=== PATIENT | male | born 1955 | race African-American/Black ===

== ENCOUNTER 2019-11-09 20:11 | Emergency (ER) | payer MEDICARE, MEDICAID ==
[~2019-11-09] VITALS: Ht 188 cm; Wt 81.8 kg
[2019-11-09] MEDS ORDERED: ibuprofen tablet 400 MG TABLET PO ONE (23:45)
[2019-11-10] MEDS ORDERED: HYDR-4383 PO (00:59)
[2019-11-10] MEDS ORDERED: HYDROcodone/acetaminophen 10/325mg tab PO ONE (01:00)
[2019-11-10 01:37] VITALS: BP 134/89
== END 2019-11-10 01:42 | disposition home or self-care (01) ==
LOC: ER 20:13
DX: S42.021A Displaced fracture of shaft of right clavicle, initial encounter for closed fracture (principal); Z88.0 Allergy status to penicillin; Z79.899 Other long term (current) drug therapy; V19.9XXA Pedal cyclist (driver) (passenger) injured in unspecified traffic accident, initial encounter; Y93.I9 Activity, other involving external motion; Y92.488 Other paved roadways as the place of occurrence of the external cause; Y99.8 Other external cause status
CPT/HCPCS: 71045; 73000; 99284

== ENCOUNTER 2021-11-26 07:49 | Emergency (ER) | payer MEDICARE, MEDICAID ==
[~2021-11-26] VITALS: Ht 188 cm; Wt 82.3 kg
[~2021-11-26 07:49] MED LIST: HYDR-4383 PO
[2021-11-26 07:53] VITALS: BP 155/89
[2021-11-26] MEDS ORDERED: OXYC10TA92 PO (08:25)
[2021-11-26] MEDS ORDERED: ibuprofen tablet 400 MG TABLET PO ONE (08:30)
[2021-11-26] MEDS ORDERED: ibuprofen 200mg tablet PO ONE (08:35)
== END 2021-11-26 08:49 | disposition home or self-care (01) ==
LOC: ER 07:50
DX: M25.511 Pain in right shoulder (principal); M54.50 Low back pain, unspecified; M54.2 Cervicalgia; R07.81 Pleurodynia; M79.605 Pain in left leg; M79.604 Pain in right leg; G89.29 Other chronic pain; Z76.0 Encounter for issue of repeat prescription; Z88.0 Allergy status to penicillin; Z79.899 Other long term (current) drug therapy
CPT/HCPCS: 99284

== ENCOUNTER 2022-01-19 11:00 | Emergency (ER) | payer MEDICARE, MEDICAID ==
[~2022-01-19] VITALS: Ht 188 cm; Wt 82.8 kg
[~2022-01-19 11:00] MED LIST changes: +OXYC10TA92 PO
[2022-01-19 11:21] VITALS: BP 176/94
[2022-01-19] MEDS ORDERED: SULF1TAB49 PO (12:57)
== END 2022-01-19 13:08 | disposition home or self-care (01) ==
LOC: ER 11:01
DX: L03.114 Cellulitis of left upper limb (principal); G89.29 Other chronic pain; Z88.0 Allergy status to penicillin; Z79.899 Other long term (current) drug therapy; Z86.19 Personal history of other infectious and parasitic diseases
CPT/HCPCS: 99283

== ENCOUNTER 2022-01-21 10:38 | Emergency (ER) | payer MEDICARE, MEDICAID ==
[~2022-01-21] VITALS: Ht 188 cm; Wt 81.8 kg
[~2022-01-21 10:38] MED LIST changes: +SULF1TAB49 PO
[2022-01-21 10:52] VITALS: BP 157/92
[2022-01-21 12:52] LABS: BASOPHILS % (AUTO) 0.2 % (0-1); EOSINOPHILS # (AUTO) 0.1 X10'3 (0-0.9); EOSINOPHILS % (AUTO) 0.9 % (0-6); LYMPHOCYTES # (AUTO) 0.9 X10'3 (1.1-4.8); MEAN CORPUSCULAR HEMOGLOBIN 30.1 PG (27.0-31.0); MEAN CORPUSCULAR HGB CONC 33.4 g/dL (33.0-36.5); MEAN CORPUSCULAR VOLUME 90.2 FL (78-98); MEAN PLATELET VOLUME 8.1 FL (7.4-10.4); MONOCYTES # (AUTO) 0.6 X10'3 (0-0.9); MONOCYTES % (AUTO) 8.1 % (2-12); NEUTROPHILS # (AUTO) 5.4 X10'3 (1.8-7.7); NEUTROPHILS % (AUTO) 77.8 % (42-75); PLATELET COUNT 213 X10'3 (140-440); RED BLOOD COUNT 4.65 X10'6 (4.70-6.10); RED CELL DISTRIBUTION WIDTH 14.4 % (11.5-14.5); WHITE BLOOD COUNT 6.9 X10'3 (4.5-11.0)
[2022-01-21 13:10] LABS: ALANINE AMINOTRANSFERASE 31 U/L (12-78); ALBUMIN 3.5 G/DL (3.4-5.0); ALBUMIN/GLOBULIN RATIO 0.8 (1.1-1.5); ALKALINE PHOSPHATASE 73 IU/L (46-116); ANION GAP 10 (8-16); ASPARTATE AMINO TRANSFERASE 19 U/L (10-37); BILIRUBIN,TOTAL 0.5 MG/DL (0.1-1.0); BLOOD UREA NITROGEN 9 MG/DL (7-18); BUN/CREATININE RATIO 11.4 (5.4-32.0); CALCIUM 9.2 MG/DL (8.5-10.1); CHLORIDE 102 MMOL/L (99-107); CREATININE 0.79 MG/DL (0.60-1.10); GLUCOSE 94 MG/DL (70-104); POTASSIUM 3.8 MMOL/L (3.5-5.1); SODIUM 139 MMOL/L (135-145); eGFR > 90 ML/MIN
[2022-01-21] MEDS ORDERED: iohexol 300mg/ml 100ml inj. ONE (13:17)
--- NOTE | 2022-01-21 15:11 | NUR ---
Pt requesting pain medication, food, and an updated plan - "is the doc going to I&D this?"
--- NOTE | 2022-01-21 15:18 | NUR ---
Pt noticably agitated and irritated. Pt placed on re-eval.
--- NOTE | 2022-01-21 15:19 | NUR ---
Pt waiting on CT result.
[2022-01-21] MEDS ORDERED: ketorolac trometh. 30mg/ml inj. IV ONE (15:55)
[2022-01-21] MEDS ORDERED: ketorolac tromethamine 15mg/ml inj. IV ONE (16:00)
== END 2022-01-21 16:17 | disposition home or self-care (01) ==
LOC: ER 10:38
DX: L02.434 Carbuncle of left upper limb (principal); R53.83 Other fatigue; G89.29 Other chronic pain; Z88.0 Allergy status to penicillin; Z79.899 Other long term (current) drug therapy
CPT/HCPCS: 36415; 73201; 80053; 85025; 96374; 99285; J1885; Q9967; 99284

== ENCOUNTER 2022-02-09 11:16 | Emergency (ER) | payer MEDICARE, MEDICAID ==
[~2022-02-09] VITALS: Ht 188 cm; Wt 82.5 kg
[~2022-02-09 11:16] MED LIST changes: -SULF1TAB49 PO
--- NOTE | 2022-02-09 15:35 | NUR ---
Pt resting comfortably in bed, no apparent distress or needs at this time.
--- NOTE | 2022-02-09 16:05 | NUR ---
Pt up to bathroom, warm blanket provided.
--- NOTE | 2022-02-09 16:15 | NUR ---
Introduced self to pt. Pt pleasant, A&Ox3, no apparent distress or needs at this time.
[2022-02-09 17:45] VITALS: BP 194/129
--- NOTE | 2022-02-09 17:52 | NUR ---
Pt verbally escalated and angry. Not agreeing to d/c without pain medication. Forceably placed Oxycotin ER bottle in my hand and told me to "tell that I didn't wait 6 hours to get no pain meds." Charge nurse notified, notified, Security notified.
== END 2022-02-09 18:33 | disposition home or self-care (01) ==
LOC: ER 11:17
DX: G89.29 Other chronic pain (principal); M25.511 Pain in right shoulder; M79.605 Pain in left leg; Z88.0 Allergy status to penicillin; Z79.899 Other long term (current) drug therapy
CPT/HCPCS: 99281

== ENCOUNTER 2022-07-03 16:36 | Emergency (ER) | payer MEDICARE, MEDICAID ==
[~2022-07-03] VITALS: Ht 188 cm; Wt 81.8 kg
[2022-07-03 16:58] VITALS: BP 146/102
[2022-07-03] MEDS ORDERED: CLIN150C8 PO (18:51)
== END 2022-07-03 19:10 | disposition home or self-care (01) ==
LOC: ER 16:37
DX: K61.1 Rectal abscess (principal); Z48.00 Encounter for change or removal of nonsurgical wound dressing; G89.29 Other chronic pain; M54.9 Dorsalgia, unspecified; Z88.0 Allergy status to penicillin
CPT/HCPCS: 99283

== ENCOUNTER 2022-07-21 09:42 | Emergency (ER) | payer MEDICARE, MEDICAID ==
[~2022-07-21 09:42] MED LIST changes: +CLIN150C8 PO
== END 2022-07-21 11:22 | disposition left against medical advice (07) ==
LOC: ER 09:43
DX: Z76.0 Encounter for issue of repeat prescription (principal); Z53.21 Procedure and treatment not carried out due to patient leaving prior to being seen by health care provider

== ENCOUNTER 2022-08-01 09:41 | Emergency (ER) | payer MEDICARE, MEDICAID ==
[~2022-08-01] VITALS: Ht 188 cm; Wt 81.8 kg
[2022-08-01 10:28] VITALS: BP 151/103
[2022-08-01] MEDS ORDERED: SULF1TAB49 PO (11:41)
== END 2022-08-01 12:04 | disposition home or self-care (01) ==
LOC: ER 09:42
DX: K61.0 Anal abscess (principal); I10 Essential (primary) hypertension; G89.29 Other chronic pain; M54.9 Dorsalgia, unspecified; Z88.0 Allergy status to penicillin; Z79.2 Long term (current) use of antibiotics; Z79.899 Other long term (current) drug therapy
CPT/HCPCS: 99283

== ENCOUNTER 2022-09-02 10:01 | Emergency (ER) | payer MEDICARE, MEDICAID ==
[~2022-09-02] VITALS: Ht 188 cm; Wt 83.0 kg
[2022-09-02] MEDS ORDERED: normal saline 1000ML IV soln IV ONE (11:30)
[2022-09-02 11:48] LABS: BASOPHILS % (AUTO) 0.3 % (0-1); EOSINOPHILS # (AUTO) 0.1 X10'3 (0-0.9); EOSINOPHILS % (AUTO) 1.9 % (0-6); HEMATOCRIT 41.9 % (42.0-52.0); HEMOGLOBIN 13.9 g/dl (14.0-17.9); LYMPHOCYTES % (AUTO) 31.8 % (21-51); MEAN CORPUSCULAR HEMOGLOBIN 30.8 PG (27.0-31.0); MEAN CORPUSCULAR HGB CONC 33.3 g/dL (33.0-36.5); MEAN CORPUSCULAR VOLUME 92.7 FL (78-98); MEAN PLATELET VOLUME 7.7 FL (7.4-10.4); MONOCYTES # (AUTO) 0.3 X10'3 (0-0.9); MONOCYTES % (AUTO) 10.1 % (2-12); NEUTROPHILS # (AUTO) 1.8 X10'3 (1.8-7.7); NEUTROPHILS % (AUTO) 55.9 % (42-75); PLATELET COUNT 203 X10'3 (140-440); RED BLOOD COUNT 4.52 X10'6 (4.70-6.10); RED CELL DISTRIBUTION WIDTH 14.4 % (11.5-14.5); WHITE BLOOD COUNT 3.2 X10'3 (4.5-11.0)
[2022-09-02] MEDS: diatr meglu/diatrizoate 30ml oral sol.-(3 dose) bottle PO SCH ×3 (11:58→14:01)
[2022-09-02 12:04] LABS: ALANINE AMINOTRANSFERASE 49 U/L (12-78); ALBUMIN 3.7 G/DL (3.4-5.0); ALBUMIN/GLOBULIN RATIO 0.9 (1.1-1.5); ALKALINE PHOSPHATASE 84 IU/L (46-116); ANION GAP 6 (8-16); ASPARTATE AMINO TRANSFERASE 32 U/L (10-37); BILIRUBIN,TOTAL 0.3 MG/DL (0.1-1.0); BLOOD UREA NITROGEN 17 MG/DL (7-18); BUN/CREATININE RATIO 18.7 (5.4-32.0); CALCIUM 8.9 MG/DL (8.5-10.1); CHLORIDE 103 MMOL/L (99-107); CREATININE 0.91 MG/DL (0.60-1.10); GLUCOSE 104 MG/DL (70-104); POTASSIUM 4.2 MMOL/L (3.5-5.1); SODIUM 138 MMOL/L (135-145); TOTAL CARBON DIOXIDE 29.4 MMOL/L (24-32); TOTAL PROTEIN 7.6 G/DL (6.4-8.2); eGFR > 90 ML/MIN
--- NOTE | 2022-09-02 12:45 | NUR ---
RELIEVING RN FOR BREAK, PT IS SLEEPING QUIETLY ON GURNEY, RESP EVEN AND UNLABORED, WAITING FOR BED UPSTAIRS
[2022-09-02] MEDS ORDERED: iohexol 300mg/ml 100ml inj. ONE (13:27)
[2022-09-02 14:04] VITALS: BP 160/93
[2022-09-02] MEDS ORDERED: METR-159 PO (15:19)
[2022-09-02] MEDS ORDERED: SULF1TAB49 PO (15:19)
== END 2022-09-02 15:41 | disposition home or self-care (01) ==
LOC: ER 10:02
DX: K61.1 Rectal abscess (principal); I10 Essential (primary) hypertension; G89.29 Other chronic pain; F12.90 Cannabis use, unspecified, uncomplicated; Z88.0 Allergy status to penicillin; Z79.2 Long term (current) use of antibiotics; Z79.899 Other long term (current) drug therapy
CPT/HCPCS: 36415; 74177; 80053; 84145; 85025; 96360; 96361; 99285; J3490; J7030; Q9963; Q9967

== ENCOUNTER 2022-10-12 05:26 | Emergency (ER) | payer MEDICARE, MEDICAID ==
[~2022-10-12] VITALS: Ht 188 cm; Wt 81.8 kg
[2022-10-12 05:36] VITALS: BP 148/97
[2022-10-12] MEDS ORDERED: METR-159 PO (07:15)
--- NOTE | 2022-10-12 07:32 | NUR ---
refer to md assessment and pt did not want to get into gown.
== END 2022-10-12 07:34 | disposition home or self-care (01) ==
LOC: ER 05:27
DX: K60.4 Rectal fistula (principal); I10 Essential (primary) hypertension; G89.29 Other chronic pain; M54.9 Dorsalgia, unspecified; F12.10 Cannabis abuse, uncomplicated; Z79.899 Other long term (current) drug therapy; Z88.0 Allergy status to penicillin; Z79.1 Long term (current) use of non-steroidal anti-inflammatories (NSAID)
CPT/HCPCS: 99283

== ENCOUNTER 2023-01-03 07:51 | Emergency (ER) | payer MEDICARE, MEDICAID ==
[~2023-01-03] VITALS: Ht 188 cm; Wt 84.0 kg
[~2023-01-03 07:51] MED LIST changes: +OXYC-752 PO; -OXYC10TA92 PO
[2023-01-03 08:05] VITALS: BP 136/69
--- NOTE | 2023-01-03 10:35 | NUR ---
PT REFUSED TO PUT ON GOWN.
[2023-01-03] MEDS ORDERED: MAGN400O6 PO (11:09)
[2023-01-03] MEDS ORDERED: ACET-1008 PO (11:09)
== END 2023-01-03 11:27 | disposition home or self-care (01) ==
LOC: ER 07:52
DX: T81.89XA Other complications of procedures, not elsewhere classified, initial encounter (principal); I10 Essential (primary) hypertension; G89.29 Other chronic pain; F12.10 Cannabis abuse, uncomplicated; Z79.899 Other long term (current) drug therapy; Z88.0 Allergy status to penicillin
CPT/HCPCS: 99282